=== PATIENT | female | born 1995 | race Caucasian/White ===

== ENCOUNTER 2017-05-22 01:30 | Inpatient (IN) | payer BC, MEDICAID ==
[~2017-05-22] VITALS: Ht 152.4 cm; Wt 76.7 kg
[2017-05-22 03:41] LABS: BILIRUBIN,URINE NEGATIVE (NEGATIVE); CLARITY/URINE CLEAR (CLEAR); COLOR,URINE YELLOW (YELLOW); GLUCOSE,URINE NEGATIVE (NEGATIVE); KETONES,URINE NEGATIVE (NEGATIVE); PROTEIN URINE NEGATIVE (NEGATIVE)
[2017-05-22 03:42] LABS: BLOOD, URINE 3+ (NEGATIVE); LEUKOCYTE ESTERASE ,URINE 2+ (NEGATIVE); NITRITE, URINE NEGATIVE (NEGATIVE); UROBILINOGEN,URINE 0.2 (0.2-1.0)
[2017-05-22 03:47] LABS: BACTERIA,URINE FEW /HPF (None Seen); WBC,URINE 20-50 /HPF (0-3)
[2017-05-22] MEDS ORDERED: LR 1,000 ML IV SCH (04:56)
[2017-05-22] MEDS ORDERED: LR 1,000 ML IV ONE (04:56)
[2017-05-22] MEDS ORDERED: NALBUPHINE HCL 10 MG/ML AMP IVP PRN (05:00)
[2017-05-22 06:22] LABS: HEMOGLOBIN 11.8 g/dL (12.0-16.0); MEAN CORPUSCULAR HEMOGLOBIN 31 pg (27-31)
[2017-05-22 06:41] LABS: BASOPHILS % (AUTO) 0.1 % (0.0-2.0); EOSINOPHILS % (AUTO) 0.2 % (0.0-4.0); HEMATOCRIT 34.5 % (36-48); LYMPHOCYTES # (AUTO) 1.2 K/uL (1.0-5.5); LYMPHOCYTES % (AUTO) 10.7 % (20.5-51.5); MEAN CORPUSCULAR HGB CONC 34 % (32-36); MEAN CORPUSCULAR VOLUME 90 fL (79.0-98.0); MONOCYTES # (AUTO) 0.8 K/uL (0.0-1.0); MONOCYTES % (AUTO) 6.8 % (1.7-9.3); NEUTROPHILS # (AUTO) 9.5 K/uL (1.8-7.7); NEUTROPHILS % (AUTO) 82.2 % (40.0-70.0); PLATELET COUNT (AUTO) 258 K/uL (130-430); RED BLOOD CELL COUNT(AUTO) 3.83 MIL/uL (4.2-6.2); RED CELL DISTRIBUTION WIDTH 11.7 % (9.0-15.0); WHITE BLOOD COUNT (AUTO) 11.5 K/uL (4.8-10.8)
[2017-05-22] MEDS ORDERED: OXYTOCIN/NORMAL SALINE 1,000 ML IV SCH ×2 (08:02→16:45)
[2017-05-22] MEDS ORDERED: fentaNYL CITRATE/PF 100 MCG/2 ML AMP ONE (08:40)
[2017-05-22] MEDS ORDERED: FENT2mCg/mL-ROPIVA0.2%/NS EPID 150 ML EP ONE (08:41)
[2017-05-22] MEDS ORDERED: LR 500 ML IV ONE (09:11)
[2017-05-22] MEDS ORDERED: FENT2mCg/mL-ROPIVA0.2%/NS EPID 150 ML EP SCH (09:15)
[2017-05-22] MEDS ORDERED: ePHEDrine sulfate 50 MG/ML VIAL IVP PRN (09:15)
[2017-05-22] MEDS ORDERED: fentaNYL CITRATE/PF 100 MCG/2 ML AMP EP ONE (09:15)
[2017-05-22] MEDS ORDERED: DIPH-TET-PERTUS Vaccine 0.5 ML VIAL/Tdap (ADACEL) I.M. PRN (09:45)
[2017-05-22 13:08] VITALS: BP_SYST 119
[2017-05-22] MEDS ORDERED: ACETAMINOPHEN 325 MG TABLET ONE (14:37)
[2017-05-22] MEDS ORDERED: AMPICILLIN SODIUM 2 GM VIAL ONE ×2 (14:38→14:39)
[2017-05-22] MEDS ORDERED: GENTAMICIN 80 mg/100 mL NS 100 ML IV ONE ×2 (14:38→14:45)
[2017-05-22] MEDS ORDERED: AMPICILLIN SODIUM 2 GM in NS 100 ML IV ONE (14:45)
[2017-05-22] MEDS ORDERED: ACETAMINOPHEN 325 MG TABLET PO PRN ×2 (14:45→16:45)
[2017-05-22] MEDS ORDERED: SENNOSIDES/DOCUSATE SODIUM 1 TAB TABLET(SENOKOT-S) PO PRN (16:45)
[2017-05-22] MEDS ORDERED: HYDROCORTISONE 0.5%, 28.35 GM TOPICAL CREAM TP PRN (16:45)
[2017-05-22] MEDS ORDERED: ANUSOL 1 EA SUPP.RECT (PREPARATION H) RC PRN (16:45)
[2017-05-22] MEDS ORDERED: MEASLES,MUMPS&RUBELLA VACC/PF 12500 UNIT/0.5 ML VIAL SUBQ PRN (16:45)
[2017-05-22] MEDS ORDERED: OXYCODONE/ACETAMINOPHEN 5-325 TABLET PO PRN ×2 (16:45)
[2017-05-22] MEDS ORDERED: DOCUSATE SODIUM 100 MG CAPSULE PO PRN (16:45)
[2017-05-22] MEDS ORDERED: GLYCERIN/WITCH HAZEL (TUCKS PADS) TP PRN (16:45)
[2017-05-22] MEDS ORDERED: LANOLIN 7 GM OINT. TP PRN (16:45)
[2017-05-22] MEDS ORDERED: OXYTOCIN/NORMAL SALINE 1,000 ML IV ONE (16:45)
[2017-05-22] MEDS ORDERED: RHO(D) IMMUNE GLOBULIN/MALTOSE 1500 UNITS/1.3 ML (WINHRO) IM PRN (16:45)
[2017-05-22] MEDS ORDERED: DERMOPLAST SPRAY TP PRN (16:45)
[2017-05-22] MEDS ORDERED: METHYLERGONOVINE MALEATE 0.2 MG TABLET PO PRN (16:45)
[2017-05-22] MEDS ORDERED: TEMAZEPAM 15 MG CAPSULE PO PRN (21:00)
[2017-05-22] MEDS: IBUPROFEN 600 MG TABLET PO SCH (23:40)
[2017-05-23] MEDS: IBUPROFEN 600 MG TABLET PO SCH ×2 (06:10→12:30)
[2017-05-23 06:35] LABS: BASOPHILS % (AUTO) 0.1 % (0.0-2.0); EOSINOPHILS # (AUTO) 0.1 K/uL (0.0-0.4); EOSINOPHILS % (AUTO) 0.6 % (0.0-4.0); HEMATOCRIT 33.8 % (36-48); HEMOGLOBIN 11.6 g/dL (12.0-16.0); LYMPHOCYTES # (AUTO) 1.6 K/uL (1.0-5.5); LYMPHOCYTES % (AUTO) 8.3 % (20.5-51.5); MEAN CORPUSCULAR HEMOGLOBIN 31 pg (27-31); MEAN CORPUSCULAR HGB CONC 34 % (32-36); MEAN CORPUSCULAR VOLUME 90 fL (79.0-98.0); MONOCYTES # (AUTO) 1.2 K/uL (0.0-1.0); MONOCYTES % (AUTO) 6.2 % (1.7-9.3); NEUTROPHILS # (AUTO) 16.2 K/uL (1.8-7.7); NEUTROPHILS % (AUTO) 84.8 % (40.0-70.0); PLATELET COUNT (AUTO) 240 K/uL (130-430); RED BLOOD CELL COUNT(AUTO) 3.74 MIL/uL (4.2-6.2); RED CELL DISTRIBUTION WIDTH 12.1 % (9.0-15.0); WHITE BLOOD COUNT (AUTO) 19.1 K/uL (4.8-10.8)
[2017-05-23] MEDS ORDERED: MINERAL OIL 30 ML UDC PO ONE (06:48)
[2017-05-23] MEDS ORDERED: ROPIVACAINE 40 MG/20 ML AMP EP ONE (06:49)
== END 2017-05-23 17:20 | disposition home or self-care (01) | DRG 775 ==
LOC: SPU 01:30 → OBSVTOIN 04:50
PROVIDERS: ADMIT Obstetrics & Gynecology; ATTEND Obstetrics & Gynecology
PROC: 10E0XZZ Delivery of Products of Conception, External Approach (ICD-10-PCS; principal; 2017-05-22)
PROC: 3E0R3BZ Introduction of Anesthetic Agent into Spinal Canal, Percutaneous Approach (ICD-10-PCS; 2017-05-22)
PROC: 00HU33Z Insertion of Infusion Device into Spinal Canal, Percutaneous Approach (ICD-10-PCS; 2017-05-22)
PROC: 3E0134Z Introduction of Serum, Toxoid and Vaccine into Subcutaneous Tissue, Percutaneous Approach (ICD-10-PCS; 2017-05-22)
DX: O76 Abnormality in fetal heart rate and rhythm complicating labor and delivery (principal); O41.1230 Chorioamnionitis, third trimester, not applicable or unspecified; O99.354 Diseases of the nervous system complicating childbirth; M41.9 Scoliosis, unspecified; O99.214 Obesity complicating childbirth; E66.9 Obesity, unspecified; Z68.33 Body mass index [BMI] 33.0-33.9, adult; Z3A.39 39 weeks gestation of pregnancy; Z37.0 Single live birth; Z23 Encounter for immunization
CPT/HCPCS: 36415; 81000-TC; 81002-TC; 85025; 86592; 86886; 86900; 86901; 90715; G0378; J0290; J1580; J2300; J2590; J2795; J3010

== ENCOUNTER 2017-05-30 20:30 | Emergency (ER) | payer BC, MEDICAID ==
[~2017-05-30] VITALS: Ht 152.4 cm; Wt 69.9 kg
[2017-05-30 20:52] VITALS: BP_SYST 105
--- NOTE | 2017-05-30 21:17 | NUR ---
Patient to ER bed 3 to gown for evaluation. Side rails up. Report given to Ok GERARDO.
--- NOTE | 2017-05-30 21:25 | NUR ---
PT AMBULATED INTO ED C/O 01/25 PAIN AND SORENESS SINCE LAST NIGHT. PAIN STARTS IN UPPER ABDOMEN TO LOWER ABDOMEN AND LOWER BACK. PT STATES SITTING "OFF HER SPINE HELPS ALLEVIATE IT" PT GAVE VAGINAL ON 05/22 AND IS EXPERIENCING NORMAL VAGINAL BLEEDING. PT HAD AN EPIDURAL DURING GIVING . NO DEFORMITIIES NOTED ON SITE. PT DENIES N/V/D/F. NO OTHER INJURIES/COMPLAINTS NOTED/PER PT.
--- NOTE | 2017-05-30 21:40 | NUR ---
ED MD Kong at bedside for medical evaluation.
[2017-05-30 22:06] LABS: BILIRUBIN,URINE NEGATIVE (NEGATIVE); BLOOD, URINE 2+ (NEGATIVE); CLARITY/URINE SL HAZY (CLEAR); COLOR,URINE YELLOW (YELLOW); GLUCOSE,URINE NEGATIVE (NEGATIVE); KETONES,URINE NEGATIVE (NEGATIVE); LEUKOCYTE ESTERASE ,URINE 3+ (NEGATIVE); NITRITE, URINE NEGATIVE (NEGATIVE); PH,URINE 6.5 (5.0-8.0); PROTEIN URINE NEGATIVE (NEGATIVE); UROBILINOGEN,URINE 0.2 (0.2-1.0)
[2017-05-30 22:16] LABS: BACTERIA,URINE MODERATE /HPF (None Seen); MUCUS,URINE None Seen /LPF (None Seen); WBC,URINE 20-50 /HPF (0-3)
--- NOTE | 2017-05-30 23:17 | NUR ---
Recieved report from Ok. Will assume care at this time.
--- NOTE | 2017-05-31 00:17 | NUR ---
ED MD Kong at bedside reassessing patient.
[2017-05-31 00:30] VITALS: BP_SYST 112
--- NOTE | 2017-05-31 00:30 | NUR ---
Patient given written and verbal discharge instructions and verbalizes understanding. ER MD discussed with patient the results and treatment provided. Patient in stable condition. ID arm band removed. Rx of Keflex given. Patient educated on pain management and to follow up with PMD. Pain Scale 4. Opportunity for questions provided and answered. Patient left ER ambulating with slow, steady gait in no acute distress. Patient given list of 24 hour pharmacies in the area.
== END 2017-05-31 00:30 | disposition home or self-care (01) ==
LOC: SED 20:30
DX: N39.0 Urinary tract infection, site not specified (principal)
CPT/HCPCS: 81000-TC; 81025; 87086; 99284